=== PATIENT | male | born 1965 | race Hispanic/Latino ===

== ENCOUNTER → 2018-08-16 | Day surgery (SDC) | payer BC ==
[~2018-08-16] VITALS: Ht 175.3 cm; Wt 124.3 kg
[~2018-08-16] MED LIST: AMLODIPINE5 MG PO; ATORVASTATIN CA80 MG PO; BREO ELLIPTA1 INH; CITALOPRAM20 MG PO; FAMOTIDINE20 M1 PO; FAMOTIDINE20 M3 PO; GABAPENTIN100 MG PO; GABAPENTIN300 M2 PO; INCRUSE EL62.5 MCG/I; INCRUSE EL62.5 MCG/I IN; LEVOTHYROXIN137 MCG PO; LEVOTHYROXIN150 MCG PO; LORATADINE10 M1 PO; METHOCARBAM500 MG PO; METOPROL TAR25 MG PO; NITROGLYCERIN0.4 MG; OMEPRAZOLE20 MG PO; VENTOLIN HF1 IN; ZOFRAN4 M1 PO
[2018-08-16 12:39] VITALS: BP 135/67
== END | disposition home or self-care (01) | DRG 378 ==
LOC: ENDO 09:19 → ORM 09:30 → ENDO 11:20
PROVIDERS: ATTEND Surgery
PROC: 0DJD8ZZ Inspection of Lower Intestinal Tract, Via Natural or Artificial Opening Endoscopic (ICD-10-PCS; principal; 2018-08-16)
DX: K57.31 Diverticulosis of large intestine without perforation or abscess with bleeding (principal); Q43.8 Other specified congenital malformations of intestine; K59.00 Constipation, unspecified; K64.8 Other hemorrhoids; I10 Essential (primary) hypertension; J44.9 Chronic obstructive pulmonary disease, unspecified; E11.9 Type 2 diabetes mellitus without complications